=== PATIENT | female | born 1965 | race Two or more races ===

== ENCOUNTER 2020-05-29 11:39 | Outpatient (CLI) | payer BC ==
[2020-05-29] MEDS ORDERED: GADOTERATE 10 MMOL/20 ML VIAL ONE (13:35)
[2020-05-29] MEDS ORDERED: OMNIPAQUE 350 MG/ML, 100ML BOTTLE ONE (14:09)
== END 2020-05-29 23:59 | disposition home or self-care (01) ==
LOC: CFH 11:39
PROVIDERS: ATTEND Surgery
DX: C50.812 Malignant neoplasm of overlapping sites of left female breast (principal)
CPT/HCPCS: 71260; 74177; 77049; A9575; C8937; Q9967; C8908

== ENCOUNTER → 2020-06-01 | Outpatient (CLI) | payer BC | END | disposition home or self-care (01) | LOC: RAD 08:47 | PROVIDERS: ATTEND Surgery | DX: C50.812 Malignant neoplasm of overlapping sites of left female breast (principal) | CPT/HCPCS: 78306; A9503 ==

== ENCOUNTER 2020-06-07 09:35 | Outpatient (CLI) | payer BC ==
[2020-06-07] MEDS ORDERED: SODIUM BICARBONATE 4.2%, 5ML ONE (11:31)
[2020-06-07] MEDS ORDERED: LIDOCAINE 1%, 20ML ONE (11:31)
[2020-06-07] MEDS ORDERED: LIDOCAINE 1%-EPI 1:100K, 20ML ONE (11:31)
== END 2020-06-07 23:59 | disposition home or self-care (01) ==
LOC: CFH 09:35
PROVIDERS: ATTEND Surgery
DX: C50.812 Malignant neoplasm of overlapping sites of left female breast (principal); C77.3 Secondary and unspecified malignant neoplasm of axilla and upper limb lymph nodes; Z17.1 Estrogen receptor negative status [ER-]; Z79.899 Other long term (current) drug therapy
CPT/HCPCS: 10035; 19285; 38505; 77065; 88305; J3490; 19286; 76942

== ENCOUNTER → 2020-06-11 | Outpatient (CLI) | payer BC | END | disposition home or self-care (01) | LOC: CFH 07:57 | PROVIDERS: ATTEND Internal Medicine Hematology & Oncology | DX: C50.812 Malignant neoplasm of overlapping sites of left female breast (principal) | CPT/HCPCS: 93306 ==

== ENCOUNTER 2020-06-14 08:12 | Day surgery (SDC) | payer BC ==
[~2020-06-14] VITALS: Ht 154.9 cm; Wt 65.7 kg
[2020-06-14] MEDS ORDERED: ACET-1600 PO (08:44)
[2020-06-14] MEDS ORDERED: ESCI10TA PO (08:44)
[2020-06-14] MEDS ORDERED: LORA-446 PO (08:44)
[2020-06-14] MEDS ORDERED: LACTATED RINGERS 1,000 ML IV SCH (08:44)
[2020-06-14 08:45] VITALS: BP 132/85
[2020-06-14] MEDS ORDERED: FENTANYL PF 100 MCG/2ML ONE ×2 (08:45→11:21)
[2020-06-14] MEDS ORDERED: MIDAZOLAM 1 MG/ML, 2ML ONE (08:45)
[2020-06-14] MEDS ORDERED: CHLORHEXIDINE 15 ML UDC ONE (08:52)
[2020-06-14] MEDS ORDERED: CHLORHEXIDINE 15 ML UDC MM ONE (09:00)
[2020-06-14] MEDS ORDERED: HEPARIN 1,000 UNITS/ML, 10ML ONE (09:15)
[2020-06-14] MEDS ORDERED: BUPIVACAINE 0.25% ONE (09:15)
[2020-06-14] MEDS ORDERED: SODIUM BICARBONATE 4.2%, 5ML ONE (09:15)
[2020-06-14] MEDS ORDERED: BUPIVACAINE/PF-EPI 0.5% 1:200K ONE (09:15)
[2020-06-14] MEDS ORDERED: ROCURONIUM 10 MG/ML,10ML ONE (10:08)
[2020-06-14] MEDS ORDERED: ONDANSETRON 2MG/ML, 2ML ONE (10:08)
[2020-06-14] MEDS ORDERED: DEXAMETHASONE 4 MG/ML, 1ML ONE (10:08)
[2020-06-14] MEDS ORDERED: SUCCINYLCHOLINE 20 MG/ML, 10ML ONE (10:08)
[2020-06-14] MEDS ORDERED: CEFAZOLIN 1,000 MG ONE (10:08)
[2020-06-14] MEDS ORDERED: PROPOFOL 10 MG/ML, 20ML ONE (10:08)
[2020-06-14] MEDS ORDERED: hydrALAzine 20 MG/ML, 1ML IV PRN (11:00)
[2020-06-14] MEDS ORDERED: MEPERIDINE/PF 25MG/0.5ML IVPush PRN (11:00)
[2020-06-14] MEDS ORDERED: METOCLOPRAMIDE 5 MG/ML, 2ML IV PRN (11:00)
[2020-06-14] MEDS ORDERED: KETOROLAC 30 MG/1 ML IV PRN (11:00)
[2020-06-14] MEDS ORDERED: ONDANSETRON 2MG/ML, 2ML IVPush PRN (11:00)
[2020-06-14] MEDS ORDERED: HYDROmorphone 1 MG/ML, 1ML INJ IV PRN (11:00)
[2020-06-14] MEDS ORDERED: ALBUTEROL SULFATE 2.5 MG/3 ML NPPB PRN (11:00)
[2020-06-14] MEDS ORDERED: PROMETHAZINE 25 MG/ML, 1ML IV PRN (11:00)
[2020-06-14] MEDS ORDERED: DIAZEPAM 5 MG/ML, 2ML IV PRN ×2 (11:00)
[2020-06-14] MEDS ORDERED: LABETALOL 5MG/ML, 20ML IV PRN (11:00)
[2020-06-14] MEDS ORDERED: OXYcodone 5 MG/5 ML ORAL.SOL UDC ONE (11:20)
[2020-06-14] MEDS ORDERED: ACETAMINOPHEN 650 MG/20.3 ML UDC ONE (11:20)
[2020-06-14] MEDS: OXYcodone 5 MG/5 ML ORAL.SOL UDC PO PRN ×2 (11:23→12:26)
[2020-06-14] MEDS: FENTANYL PF 100 MCG/2ML IV PRN ×3 (11:24→11:47)
[2020-06-14] MEDS ORDERED: ACETAMINOPHEN 650 MG/20.3 ML UDC PO PRN (11:30)
== END 2020-06-14 13:35 | disposition home or self-care (01) ==
LOC: OUT 08:12
PROVIDERS: ATTEND Surgery
DX: C50.812 Malignant neoplasm of overlapping sites of left female breast (principal); Z11.59 Encounter for screening for other viral diseases; Z17.1 Estrogen receptor negative status [ER-]; Z79.899 Other long term (current) drug therapy
CPT/HCPCS: 36415; 36561; 71045; 77001; 87635; C1788; J0330; J0690; J1100; J1644; J2250; J2405; J2704; J3010; J7120; J3490

== ENCOUNTER 2020-10-25 08:47 | Outpatient (CLI) | payer BC ==
[~2020-10-25 08:47] MED LIST: ACET-1600 PO; ESCI10TA5 PO; LORA-446 PO
[2020-10-25] MEDS ORDERED: GADOTERATE 7.5 MMOL/15 ML VIAL ONE (09:52)
== END 2020-10-25 23:59 | disposition home or self-care (01) ==
LOC: CFH 08:47
PROVIDERS: ATTEND Surgery
DX: C50.912 Malignant neoplasm of unspecified site of left female breast (principal)
CPT/HCPCS: 77049; A9575; C8937; C8908

== ENCOUNTER 2020-11-23 09:25 | Outpatient (CLI) | payer BC, OTHER ==
[~2020-11-23 09:25] MED LIST changes: -ESCI10TA5 PO; +ESCI10TA97 PO
== END 2020-11-23 23:59 | disposition home or self-care (01) ==
LOC: STAR 09:25
PROVIDERS: ATTEND Anesthesiology
DX: Z20.822 Contact with and (suspected) exposure to COVID-19 (principal)
CPT/HCPCS: 87635

== ENCOUNTER 2020-11-27 12:23 | Observation (INO) | payer BC, OTHER ==
[~2020-11-27] VITALS: Ht 160 cm; Wt 61.0 kg
[2020-11-27 12:39] VITALS: BP 145/97
[2020-11-27] MEDS ORDERED: LACTATED RINGERS 1,000 ML IV SCH (13:00)
[2020-11-27] MEDS ORDERED: CHLORHEXIDINE 15 ML UDC ONE (13:02)
[2020-11-27 13:30] LABS: BASOPHILS % (AUTO) 1 % (0-1); EOSINOPHILS % (AUTO) 0 % (1-7); LYMPHOCYTES % (AUTO) 31 % (22-44); MD NO; MEAN CORPUSCULAR HEMOGLOBIN 33.6 pg (27.0-34.8); MEAN CORPUSCULAR HGB CONC 34.6 g/dL (32.4-35.8); MEAN PLATELET VOLUME 6.8 fL (7.4-10.4); MONOCYTES % (AUTO) 15 % (2-9); NEUTROPHILS % (AUTO) 53 % (42-75); PLATELET COUNT 220 x10^3/uL (130-400); RED BLOOD COUNT 3.73 x10^6/uL (3.82-5.3)
[2020-11-27] MEDS ORDERED: GENTAMICIN 80 MG/2 ML ONE (14:20)
[2020-11-27] MEDS ORDERED: BUPIVACAINE/PF 0.5% ONE (14:20)
[2020-11-27] MEDS ORDERED: CEFAZOLIN 1,000 MG ONE ×2 (14:20→14:57)
[2020-11-27] MEDS ORDERED: ISOSULFAN BLUE 10 MG/ML, 5ML IV ONE (14:20)
[2020-11-27] MEDS ORDERED: EPINEPHRINE 1 MG/ML, 1ML ONE (14:21)
[2020-11-27] MEDS ORDERED: BACITRACIN 50,000 UNIT ONE (14:21)
[2020-11-27] MEDS ORDERED: MIDAZOLAM 1 MG/ML, 2ML ONE (14:48)
[2020-11-27] MEDS ORDERED: FENTANYL PF 100 MCG/2ML ONE ×4 (14:49→18:21)
[2020-11-27] MEDS ORDERED: ROCURONIUM 10 MG/ML,10ML ONE (14:57)
[2020-11-27] MEDS ORDERED: ONDANSETRON 2MG/ML, 2ML ONE (14:57)
[2020-11-27] MEDS ORDERED: NEOSTIGMINE 1 MG/ML, 10ML ONE (14:57)
[2020-11-27] MEDS ORDERED: GLYCOPYRROLATE 0.2MG/1ML, 5ML ONE (14:57)
[2020-11-27] MEDS ORDERED: PROPOFOL 50 ML ONE ×2 (15:30→16:49)
[2020-11-27] MEDS ORDERED: MEPERIDINE/PF 25MG/0.5ML IVPush PRN (16:00)
[2020-11-27] MEDS ORDERED: LORazepam 2 MG/ML, 1ML IVPush PRN (16:00)
[2020-11-27] MEDS ORDERED: ALBUTEROL SULFATE 2.5 MG/3 ML NPPB PRN (16:00)
[2020-11-27] MEDS ORDERED: PROMETHAZINE 25 MG/ML, 1ML IVPush PRN (16:00)
[2020-11-27] MEDS ORDERED: OXYcodone 5 MG/5 ML ORAL.SOL UDC PO PRN (16:00)
[2020-11-27] MEDS ORDERED: hydrALAzine 20 MG/ML, 1ML IV PRN (16:00)
[2020-11-27] MEDS ORDERED: METHOCARBAMOL 1,000 MG in DEXTROSE 5% 100 ML IV PRN (16:00)
[2020-11-27] MEDS ORDERED: ACETAMINOPHEN 325 MG TABLET PO PRN (16:00)
[2020-11-27] MEDS ORDERED: LABETALOL 5MG/ML, 20ML IV PRN (16:00)
[2020-11-27] MEDS ORDERED: SCOPOLAMINE 1MG PATCH TD ONE (16:35)
[2020-11-27] MEDS ORDERED: OXYcodone 5 MG/5 ML ORAL.SOL UDC ONE (18:03)
[2020-11-27] MEDS: FENTANYL PF 100 MCG/2ML IV PRN ×3 (18:05→18:32)
[2020-11-27] MEDS ORDERED: HYDROmorphone 1 MG/ML, 1ML INJ ONE (18:21)
[2020-11-27] MEDS: HYDROmorphone 1 MG/ML, 1ML INJ IVPush PRN ×2 (18:21→18:26)
[2020-11-27] MEDS ORDERED: DIPHENHYDRAMINE 50 MG/ML, 1ML ONE (21:23)
[2020-11-27] MEDS ORDERED: SODIUM CHLORIDE 0.9%, 500ML IVBOLUS ONE (21:30)
[2020-11-27] MEDS ORDERED: PROMETHAZINE 25 MG/ML, 1ML IM ONE (21:30)
[2020-11-27] MEDS ORDERED: DIPHENHYDRAMINE 50 MG/ML, 1ML IVPush ONE (21:30)
[2020-11-27] MEDS ORDERED: morphine SULFATE 10 MG/ML, 1ML IVPush PRN (23:00)
[2020-11-27] MEDS ORDERED: ONDANSETRON 2MG/ML, 2ML IVPush PRN (23:00)
[2020-11-27] MEDS: SODIUM CHLORIDE 0.9% 1,000 ML IV SCH (23:00)
[2020-11-28 00:08] VITALS: BP 133/85
[2020-11-28 05:06] VITALS: BP 122/79
[2020-11-28 06:55] VITALS: BP 122/82
[2020-11-28] MEDS: SODIUM CHLORIDE 0.9% 1,000 ML IV SCH ×2 (07:59→15:00)
[2020-11-28 15:35] VITALS: BP 126/82
== END 2020-11-28 17:45 | disposition home or self-care (01) ==
LOC: OR 12:23 → 3N 23:03 → INTOOBSV 23:03 → 4NE 23:47
PROVIDERS: ADMIT Surgery; ATTEND Surgery
DX: C50.912 Malignant neoplasm of unspecified site of left female breast (principal); Z90.12 Acquired absence of left breast and nipple; Z17.1 Estrogen receptor negative status [ER-]; Z42.1 Encounter for breast reconstruction following mastectomy; Z79.899 Other long term (current) drug therapy
CPT/HCPCS: 19303; 19357; 36415; 36590; 38525; 38792; 76098; 85025; 88307; 88333; 88334; 93005; 96360; 96361; A9541; C1729; C1762; C1789; G0378; J0171; J0690; J1170; J1200; J1580; J2250; J2405; J2550; J2704; J2710; J2800; J3010; J7030; J7040; S0020

== ENCOUNTER 2020-12-20 07:32 | Day surgery (SDC) | payer BC, OTHER ==
[~2020-12-20] VITALS: Ht 157.5 cm; Wt 59.8 kg
[2020-12-20 07:58] VITALS: BP 125/80
[2020-12-20] MEDS ORDERED: LACTATED RINGERS 1,000 ML IV SCH (08:00)
[2020-12-20] MEDS ORDERED: CHLORHEXIDINE 15 ML UDC MM ONE (08:00)
[2020-12-20 08:23] LABS: HCG UR SG 1.016 (1.003-1.030)
[2020-12-20] MEDS ORDERED: BUPIVACAINE/PF 0.5% ONE (09:43)
[2020-12-20] MEDS ORDERED: EPINEPHRINE 1 MG/ML, 1ML ONE (09:43)
[2020-12-20] MEDS ORDERED: MIDAZOLAM 1 MG/ML, 2ML ONE (09:55)
[2020-12-20] MEDS ORDERED: FENTANYL PF 250 MCG/5ML ONE (09:55)
[2020-12-20] MEDS ORDERED: SUCCINYLCHOLINE 20 MG/ML, 10ML ONE (10:00)
[2020-12-20] MEDS ORDERED: ONDANSETRON 2MG/ML, 2ML ONE (10:00)
[2020-12-20] MEDS ORDERED: ROCURONIUM 10 MG/ML,10ML ONE (10:00)
[2020-12-20] MEDS ORDERED: DEXAMETHASONE 4 MG/ML, 1ML ONE (10:00)
[2020-12-20] MEDS ORDERED: CEFAZOLIN 1,000 MG ONE ×2 (10:07)
[2020-12-20] MEDS ORDERED: LIDOCAINE-MPF 2% ,5ML ONE (10:09)
[2020-12-20] MEDS ORDERED: PROPOFOL 10 MG/ML, 20ML ONE (10:09)
[2020-12-20] MEDS ORDERED: HYDR-1067 PO (11:10)
[2020-12-20] MEDS ORDERED: CEPH500T PO (11:14)
[2020-12-20] MEDS ORDERED: MIDAZOLAM 1 MG/ML, 2ML IV PRN (11:30)
[2020-12-20] MEDS ORDERED: ALBUTEROL SULFATE 2.5 MG/3 ML NPPB PRN (11:30)
[2020-12-20] MEDS ORDERED: EPHEDRINE 50 MG/ML, 1ML IVPush PRN (11:30)
[2020-12-20] MEDS ORDERED: DIPHENHYDRAMINE 50 MG/ML, 1ML IVPush PRN (11:30)
[2020-12-20] MEDS ORDERED: DIAZEPAM 5 MG/ML, 2ML IVPush PRN (11:30)
[2020-12-20] MEDS ORDERED: LABETALOL 5MG/ML, 20ML IV PRN (11:30)
[2020-12-20] MEDS ORDERED: PROMETHAZINE 25 MG/ML, 1ML IVPush PRN (11:30)
[2020-12-20] MEDS ORDERED: hydrALAzine 20 MG/ML, 1ML IV PRN (11:30)
[2020-12-20] MEDS ORDERED: PROMETHAZINE 12.5 MG SUPP PR PRN (11:30)
[2020-12-20] MEDS ORDERED: ACETAMINOPHEN 325 MG TABLET PO PRN (11:30)
[2020-12-20] MEDS ORDERED: MEPERIDINE/PF 25MG/0.5ML IVPush PRN (11:30)
[2020-12-20] MEDS ORDERED: ONDANSETRON 2MG/ML, 2ML IVPush PRN (11:30)
[2020-12-20] MEDS ORDERED: HYDROmorphone 1 MG/ML, 1ML INJ IVPush PRN (11:30)
[2020-12-20] MEDS ORDERED: ACETAMINOPHEN 650 MG/20.3 ML UDC ONE (11:49)
[2020-12-20] MEDS ORDERED: FENTANYL PF 100 MCG/2ML ONE (11:50)
[2020-12-20] MEDS ORDERED: OXYcodone 5 MG/5 ML ORAL.SOL UDC ONE (11:50)
[2020-12-20] MEDS: OXYcodone 5 MG/5 ML ORAL.SOL UDC PO PRN ×2 (11:51→13:39)
[2020-12-20] MEDS: FENTANYL PF 100 MCG/2ML IV PRN ×2 (12:00→12:05)
== END 2020-12-20 13:55 | disposition home or self-care (01) ==
LOC: OUT 07:32
PROVIDERS: ATTEND Surgery
DX: C50.812 Malignant neoplasm of overlapping sites of left female breast (principal); Z17.1 Estrogen receptor negative status [ER-]; Z79.891 Long term (current) use of opiate analgesic; Z79.899 Other long term (current) drug therapy; Z90.12 Acquired absence of left breast and nipple; Z92.21 Personal history of antineoplastic chemotherapy
CPT/HCPCS: 38745; 81025; 88305; C1729; J0171; J0330; J0690; J1100; J2250; J2405; J2704; J3010; J7120; 87635

== ENCOUNTER 2021-01-04 08:53 | Outpatient (CLI) | payer BC, OTHER ==
[~2021-01-04 08:53] MED LIST changes: +CEPH500T PO; +CHLORHEXIDINE 15 ML UDC ONE; +HYDR-1067 PO
== END 2021-01-04 23:59 | disposition home or self-care (01) ==
LOC: ROC 08:53
PROVIDERS: ATTEND Radiology Radiation Oncology
DX: C50.412 Malignant neoplasm of upper-outer quadrant of left female breast (principal); Z17.0 Estrogen receptor positive status [ER+]; Z79.891 Long term (current) use of opiate analgesic; Z79.899 Other long term (current) drug therapy
CPT/HCPCS: 99214; G0463

== ENCOUNTER → 2021-03-28 | Outpatient (CLI) | payer BC, OTHER ==
[~2021-03-28] MED LIST changes: -CHLORHEXIDINE 15 ML UDC ONE; -HYDR-1067 PO; +HYDR-2214 PO
== END | disposition home or self-care (01) ==
LOC: ROC 08:00
PROVIDERS: ATTEND Radiology Radiation Oncology
DX: Z08 Encounter for follow-up examination after completed treatment for malignant neoplasm (principal); Z85.3 Personal history of malignant neoplasm of breast; I89.0 Lymphedema, not elsewhere classified; Z17.0 Estrogen receptor positive status [ER+]; Z79.891 Long term (current) use of opiate analgesic; Z79.899 Other long term (current) drug therapy
CPT/HCPCS: 99213; G0463

== ENCOUNTER → 2021-06-10 | Outpatient (CLI) | payer BC | END | disposition home or self-care (01) | LOC: CFH 09:02 | PROVIDERS: ATTEND Radiology Radiation Oncology | DX: Z12.31 Encounter for screening mammogram for malignant neoplasm of breast (principal) | CPT/HCPCS: 77063; 77067 ==